=== PATIENT | female | born 1950 | race African-American/Black ===

== ENCOUNTER → 2017-11-09 | Outpatient (CLI) | payer MEDICARE, OTHER ==
[2017-11-09 13:18] LABS: ABSOLUTE BASOPHILS # (AUTO) 0.1 10^3/uL (0.0-0.2); ABSOLUTE EOSINOPHILS # (AUTO) 0.1 10^3/uL (0.0-0.6); ABSOLUTE LYMPHOCYTES (AUTO) 2.7 10^3/uL (0.5-4.7); ABSOLUTE MONOCYTES (AUTO) 0.4 10^3/uL (0.1-1.4); ABSOLUTE NEUT (AUTO) 4.7 10^3/uL (1.7-8.2); BASOPHILS % (AUTO) 1.4 % (0-2); EOSINOPHILS % (AUTO) 0.9 % (0-6); HEMOGLOBIN 15.2 g/dL (12.0-15.5); LYMPHOCYTES % (AUTO) 33.7 % (13-45); MEAN CORPUSCULAR HEMOGLOBIN 27.3 pg (27.0-33.4); MEAN CORPUSCULAR HGB CONC 33.1 g/dL (32.0-36.0); MEAN CORPUSCULAR VOLUME 83 fl (80-97); MONOCYTES % (AUTO) 5.3 % (3-13); PLATELET COUNT 328 10^3/uL (150-450); RED BLOOD COUNT 5.58 10^6/uL (3.72-5.28); RED CELL DISTRIBUTION WIDTH 17.3 % (11.5-14.0); SEGMENTED NEUTROPHILS % (AUTO) 58.7 % (42-78); TOTAL CELLS COUNTED % (AUTO) 100 %
[2017-11-09 13:37] LABS: ALANINE AMINOTRANSFERASE 24 U/L (9-52); ALBUMIN 4.2 g/dL (3.5-5.0); ALKALINE PHOSPHATASE 90 U/L (38-126); ANION GAP 11 (5-19); ASPARTATE AMINO TRANSFERASE 15 U/L (14-36); BILIRUBIN,DIRECT 0.4 mg/dL (0.0-0.4); BILIRUBIN,TOTAL 0.4 mg/dL (0.2-1.3); BLOOD UREA NITROGEN 19 mg/dL (7-20); CARBON DIOXIDE 31 mmol/L (22-30); CHLORIDE 105 mmol/L (98-107); CHOLESTEROL 209.48 mg/dL (0-200); GLUCOSE 89 mg/dL (75-110); POTASSIUM 5.2 mmol/L (3.6-5.0); TOTAL PROTEIN 7.7 g/dL (6.3-8.2); TRIGLYCERIDES 83 mg/dL (<150)
[2017-11-09 13:47] LABS: DIRECT LDL 132 mg/dL (<100)
[2017-11-09 13:54] LABS: FREE T4 (FREE THYROXINE) 1.27 ng/dL (0.78-2.19)
[2017-11-09 14:08] LABS: THYROID STIMULATING HORMONE 1.51 uIU/mL (0.47-4.68)
== END ==
LOC: OD 12:18
PROVIDERS: ATTEND Internal Medicine
DX: E11.9 Type 2 diabetes mellitus without complications (principal); E78.00 Pure hypercholesterolemia, unspecified; I10 Essential (primary) hypertension; R53.83 Other fatigue; Z79.899 Other long term (current) drug therapy
CPT/HCPCS: 36415; 80053; 80061; 84439; 84443; 85025

== ENCOUNTER 2018-06-20 15:45 | Emergency (ER) | payer MEDICARE ==
--- NOTE | 2018-06-20 16:04 | ER Document Report ---
ED General - General Mode of Arrival: Ambulatory Information source: Patient TRAVEL OUTSIDE OF THE [place] IN LAST 30 DAYS: No <NORAH RUIZ - Last Filed: 06/20/18 16:12> <CURT SUÁREZ - Last Filed: 06/20/18 18:21> - General Chief Complaint: Fall Injury Stated Complaint: FALL Time Seen by Provider: 06/20/18 15:55 Notes: Patient is a 67 year old female with diabetes type 2 (takes insulin and metformin), hypertension, osteoarthritis, anxiety, depression, GERD presents to the emergency department complaining of right knee pain due to a mechanical trip and fall. Patient states she fell at approximately 0100 on a concrete floor and was not found until 1100 this morning. Patient denies a history of gout. Patient takes Valium as needed at bedtime. (NORAH RUIZ) - Related Data Allergies/Adverse Reactions: No Known Allergies Allergy (Verified 05/05/18 18:14) Past Medical History - General Information source: Patient - Social History Smoking Status: Current Every Day Smoker Chew tobacco use (# tins/day): No Frequency of alcohol use: None Drug Abuse: None Lives with: Alone Family History: Reviewed & Not Pertinent Patient has suicidal ideation: No Patient has homicidal ideation: No - Past Medical History Cardiac Medical History: Reports: Hx Coronary Artery Disease - high chol , Hx Hypercholesterolemia, Hx Hypertension Neurological Medical History: Reports: Hx Cerebrovascular Accident - February Endocrine Medical History: Reports: Hx Diabetes Mellitus Type 2 Renal/ Medical History: Reports: Hx Kidney Stones GI Medical History: Reports: Hx Ulcer Psychiatric Medical History: Reports: Hx Depression Past Surgical History: Reports: Hx Kidney (Renal Surgery) - open proceedure to remove a renal stone, Hx Orthopedic Surgery - Immunizations Hx Diphtheria, Pertussis, Tetanus Vaccination: Yes Hx Pneumococcal Vaccination: 07/07/13 <NORAH RUIZ - Last Filed: 06/20/18 16:12> Review of Systems - Review of Systems Constitutional: No symptoms reported EENT: No symptoms reported Cardiovascular: No symptoms reported Respiratory: No symptoms reported Gastrointestinal: No symptoms reported Genitourinary: No symptoms reported Female Genitourinary: No symptoms reported Musculoskeletal: See HPI Skin: No symptoms reported Hematologic/Lymphatic: No symptoms reported Neurological/Psychological: No symptoms reported -: Yes All other systems reviewed and negative <NORAH RUIZ - Last Filed: 06/20/18 16:12> Physical Exam - General General appearance: Appears well, Alert In distress: None - HEENT Head: Normocephalic, Atraumatic Eyes: Normal Conjunctiva: Normal Extraocular movements intact: Yes Pupils: PERRL Mucous membranes: Normal Neck: Normal - Respiratory Respiratory status: No respiratory distress Chest status: Nontender Breath sounds: Normal Chest palpation: Normal - Cardiovascular Rhythm: Regular Heart sounds: Normal auscultation Murmur: No Friction rub: No Gallop: None auscultated - Abdominal Inspection: Normal - Back Back: Normal - Extremities General upper extremity: Normal ROM General lower extremity: Normal ROM Knee: Tender - right knee, Joint effusion - right knee, Other - Right knee grossly swollen with effusion proximally. - Neurological Neuro grossly intact: Yes Cognition: Normal Orientation: AAOx4 Boris Coma Scale Eye Opening: Spontaneous [place] Coma Scale Verbal: Oriented Boris Coma Scale Motor: Obeys Commands [place] Coma Scale Total: 15 Speech: Normal - Psychological Associated symptoms: Normal affect, Normal mood - Skin Skin Temperature: Warm Skin Moisture: Dry Skin Color: Normal <NORAH RUIZ - Last Filed: 06/20/18 16:12> - Vital signs Vitals: Temp Pulse Resp BP Pulse Ox 97.7 F 81 16 148/71 H 94 06/20/18 15:51 06/20/18 15:51 06/20/18 15:51 06/20/18 15:51 06/20/18 15:51 Course - Laboratory Result Diagrams: 06/20/18 16:57 06/20/18 16:57 - Diagnostic Test Radiology reviewed: Image reviewed, Reports reviewed - Right knee x-ray does not show fracture, there is joint effusion. <CURT SUÁREZ - Last Filed: 06/20/18 18:21> - Vital Signs Vital signs: Temp Pulse Resp BP Pulse Ox 97.7 F 81 16 148/71 H 94 06/20/18 15:51 06/20/18 15:51 06/20/18 15:51 06/20/18 15:51 06/20/18 15:51 - Laboratory Laboratory results interpreted by me: 06/20/18 06/20/18 06/20/18 16:51 16:57 16:57 RDW 16.0 H Creatine Kinase 193 H Urine Glucose (UA) >=500 H Urine Urobilinogen 4.0 H Discharge <NORAH RUIZ - Last Filed: 06/20/18 16:12> <KAMINICURT - Last Filed: 06/20/18 18:21> - Discharge Clinical Impression: Contusion of right knee Qualifiers: Encounter type: initial encounter Qualified Code(s): S80.01XA - Contusion of right knee, initial encounter Condition: Stable Disposition: HOME, SELF-CARE Additional Instructions: Kidney Injury You have a kidney injury. The injury does not seem to be serious, and should heal by itself. Kidney injuries are treated with rest. The first 24 hours after the injury , bed rest is usually recommended. You should not play sports or do vigorous physical activity for a few days until all blood is cleared from the urine. The doctor will advise you when it's safe. Drink plenty of fluids (at least three quarts per day), unless the physician has advised you otherwise. This washes the blood away, lessening the risk of painful clots forming. You should return for further care if you develop lightheadedness, fever, increasingly severe flank pain, or inability to urinate. Use the knee immobilizer whenever your walking. Elevate the leg as much as possible. Use ice packs on the knee for the next 1-2 days. Take the pain medication as prescribed, only when needed. Limit walking to only the essential tasks, such as going to the bathroom. Follow-up with Dr. Jay this week to recheck your knee and to make orthopedic referral if needed. RETURN TO THE EMERGENCY ROOM IF ANY NEW OR WORSENING SYMPTOMS. Prescriptions: Oxycodone HCl/Acetaminophen [Percocet 5-325 mg Tablet] 1 tab PO ASDIR PRN #15 tablet PRN Reason: Referrals: DORIAN JAY MD [Primary Care Provider] - Follow up in 3-5 days Scribe Attestation: 06/20/18 17:00 I personally performed the services described in the documentation, reviewed and edited the documentation which was dictated to the scribe in my presence, and it accurately records my words and actions. (CURT SUÁREZ) Scribe Documentation - Scribe Written by Vincente:: Brielle Mckoy, 06/20/2018 16:12 acting as scribe for :: Kamini <NORAH RUIZ - Last Filed: 06/20/18 16:12>
[2018-06-20] MEDS ORDERED: OXYCODONE-ACETAMINOPHEN 5-325 MG TABLET PO ONE (16:05)
[2018-06-20] MEDS ORDERED: ONDANSETRON 4 MG TAB.RAPDIS PO ONE (16:05)
--- NOTE | 2018-06-20 16:46 | RADIOLOGY REPORT (SQ) ---
EXAM DESCRIPTION: KNEE RIGHT 4 VIEWS COMPLETED DATE/TIME: 06/20/2018 4:21 pm REASON FOR STUDY: Fell on knee, swelling with effusion COMPARISON: None. NUMBER OF VIEWS: Four views. TECHNIQUE: AP, lateral, and both oblique radiographic images acquired of the right knee. LIMITATIONS: None. FINDINGS: MINERALIZATION: Normal. BONES: No acute fracture or dislocation. No worrisome bone lesions. JOINT: There is decrease in the lateral compartment with associated osteophytic lipping. Degenerativ e changes are identified in the patellofemoral compartment with patellar spurring SOFT TISSUES: There is soft tissue fullness at the level of the suprapatellar pouch which may represe nt a joint effusion. No radio-opaque foreign body. OTHER: No other significant finding. IMPRESSION: Degenerative changes without evidence for fracture. Possible joint effusion as noted ab ove. TECHNICAL DOCUMENTATION: JOB ID: [id number] [employer]- All Rights Reserved Reading location - IP/workstation name: [email or web address]
[2018-06-20 17:11] LABS: ABSOLUTE BASOPHILS # (AUTO) 0.1 10^3/uL (0.0-0.2); ABSOLUTE EOSINOPHILS # (AUTO) 0.2 10^3/uL (0.0-0.6); ABSOLUTE LYMPHOCYTES (AUTO) 1.9 10^3/uL (0.5-4.7); ABSOLUTE MONOCYTES (AUTO) 0.5 10^3/uL (0.1-1.4); ABSOLUTE NEUT (AUTO) 5.9 10^3/uL (1.7-8.2); BASOPHILS % (AUTO) 1.3 % (0-2); EOSINOPHILS % (AUTO) 2.1 % (0-6); HEMATOCRIT 41.3 % (36.0-47.0); LYMPHOCYTES % (AUTO) 22.3 % (13-45); MEAN CORPUSCULAR HEMOGLOBIN 28.6 pg (27.0-33.4); MEAN CORPUSCULAR HGB CONC 33.9 g/dL (32.0-36.0); MEAN CORPUSCULAR VOLUME 85 fl (80-97); MONOCYTES % (AUTO) 6.2 % (3-13); PLATELET COUNT 307 10^3/uL (150-450); RED BLOOD COUNT 4.88 10^6/uL (3.72-5.28); SEGMENTED NEUTROPHILS % (AUTO) 68.1 % (42-78); TOTAL CELLS COUNTED % (AUTO) 100 %; WHITE BLOOD COUNT 8.7 10^3/uL (4.0-10.5)
[2018-06-20 17:20] LABS: APPEARANCE,URINE CLEAR; BILIRUBIN,URINE NEGATIVE (NEGATIVE); COLOR,URINE YELLOW; GLUCOSE, URINE >=500 mg/dL (NEGATIVE); KETONES,URINE NEGATIVE (NEGATIVE); LEUKOCYTE ESTERASE,URINE NEGATIVE (NEGATIVE); NITRITE,URINE NEGATIVE (NEGATIVE); PROTEIN,URINE NEGATIVE (NEGATIVE); URINE SPECIFIC GRAVITY 1.022
[2018-06-20 17:39] LABS: ALANINE AMINOTRANSFERASE 34 U/L (9-52); ALBUMIN 3.6 g/dL (3.5-5.0); ALKALINE PHOSPHATASE 89 U/L (38-126); ANION GAP 10 (5-19); ASPARTATE AMINO TRANSFERASE 23 U/L (14-36); BILIRUBIN,DIRECT 0.2 mg/dL (0.0-0.4); BILIRUBIN,TOTAL 0.4 mg/dL (0.2-1.3); BLOOD UREA NITROGEN 16 mg/dL (7-20); CALCIUM 9.6 mg/dL (8.4-10.2); CARBON DIOXIDE 27 mmol/L (22-30); CHLORIDE 107 mmol/L (98-107); CREATINE KINASE 193 U/L (30-135); GLUCOSE 97 mg/dL (75-110); POTASSIUM 4.1 mmol/L (3.6-5.0); SODIUM 143.5 mmol/L (137-145); URIC ACID 7.1 mg/dL (2.5-7.5)
[2018-06-20 18:28] VITALS: BP 118/59
== END 2018-06-20 18:31 | disposition home or self-care (01) ==
LOC: ER 15:45
DX: S80.01XA Contusion of right knee, initial encounter (principal); M25.461 Effusion, right knee; W01.0XXA Fall on same level from slipping, tripping and stumbling without subsequent striking against object, initial encounter; F17.200 Nicotine dependence, unspecified, uncomplicated; E11.9 Type 2 diabetes mellitus without complications; I10 Essential (primary) hypertension; K21.9 Gastro-esophageal reflux disease without esophagitis; M19.90 Unspecified osteoarthritis, unspecified site; F32.9 Major depressive disorder, single episode, unspecified; I25.10 Atherosclerotic heart disease of native coronary artery without angina pectoris; F41.9 Anxiety disorder, unspecified; S37.009A Unspecified injury of unspecified kidney, initial encounter; X58.XXXA Exposure to other specified factors, initial encounter; Z79.4 Long term (current) use of insulin; Z86.73 Personal history of transient ischemic attack (TIA), and cerebral infarction without residual deficits
CPT/HCPCS: 99284; 51701; 36415; 82550; 84550; 85025; 80053; 81001; 73564; L1830; A9270 ×2; S0119